=== PATIENT | female | born 1995 | race Caucasian/White ===

== ENCOUNTER 2018-04-07 11:20 | Day surgery (SDC) | payer BC ==
[2018-04-06 13:07] VITALS: BMI 27.3
[2018-04-07] MEDS ORDERED: BUPIVACAINE HCL/PF 0.5% (5MG/ML) 10 ML VIAL ONE (12:08)
--- NOTE | 2018-04-07 12:12 | HP ---
[facility] - Chief Complaint Chief Complaint: History of biliary pancreatitis, gallstones, elevated LFTs History Source: Patient Limitations to Obtaining History: No Limitations - Past Medical History Allergies/Adverse Reactions: Allergies Allergy/AdvReac Type Severity Reaction Status Date / Time peanut Allergy Severe Hives Verified 04/06/18 13:02 shellfish derived Allergy Severe Hives Verified 04/06/18 13:02 strawberry Allergy Severe Hives Verified 04/06/18 13:02 ...LMP: 03/17/18 - Current Medications Current Medications: Home Medications Medication Instructions Recorded Docusate Sodium [Colace -] 100 mg PO TID #90 capsule 04/07/18 Oxycodone HCl/Acetaminophen 1 - 2 tab PO Q6H #28 tab MDD 4 04/07/18 [Percocet 5-325 mg Tablet] Satellite Physical Exam - Physical Examination Vital Signs: Vital Signs Period Temp Pulse Resp BP Sys/Wesley Pulse Ox Last 24 Hr 99 F 90 18 129/90 99 General Appearance: Well Nourished Lung: Clear to auscultation Heart: Regular rate & rhythm Abdomen: Soft, No tenderness Neurological: Alert, Oriented Satellite Impression/Plan - Impression/Plan Impression: History of biliary pancreatitis, elevated LFTs, gallstones Operative Procedure: Robotic cholecystectomy Date to be Performed: 04/07/18
[2018-04-07] MEDS ORDERED: MIDAZOLAM HCL 2 MG/2 ML SINGLE DOSE VIAL ONE (13:32)
[2018-04-07] MEDS ORDERED: PROPOFOL 20 ML ONE (13:33)
[2018-04-07] MEDS ORDERED: ROCURONIUM BROMIDE 50 MG/5 ML VIAL ONE ×2 (13:34→14:21)
[2018-04-07] MEDS ORDERED: ceFAZolin SODIUM 1 GM VIAL IVPB ONE (13:41)
[2018-04-07] MEDS ORDERED: BUPIVACAINE HCL/PF 0.5% (5MG/ML) 10 ML VIAL IJ ONE (14:00)
[2018-04-07] MEDS ORDERED: LIDOCAINE HCL/PF 2% SDV 5ML VIAL ONE (14:52)
[2018-04-07] MEDS ORDERED: DEXAMETHASONE SOD PHOSPHATE 4 MG/1 ML VIAL ONE (14:52)
[2018-04-07] MEDS ORDERED: ceFAZolin SODIUM 1 GM VIAL ONE (14:52)
[2018-04-07] MEDS ORDERED: LIDOCAINE HCL 2% JELLY (5 ML/TUBE) ONE (14:52)
[2018-04-07] MEDS ORDERED: KETOROLAC TROMETHAMINE 30 MG/1 ML VIAL ONE (14:52)
[2018-04-07] MEDS ORDERED: GLYCOPYRROLATE 0.2 MG/1 ML VIAL ONE (15:00)
[2018-04-07] MEDS ORDERED: NEOSTIGMINE METHYLSULFATE 0.5 MG/ML - 10 ML MDV ONE (15:00)
--- NOTE | 2018-04-07 15:18 | OP ---
Operative Note - Note: Operative Date: 04/07/18 Pre-Operative Diagnosis: HIstory of biliary pancreatitis, elevated LFTs, jaundice, CBD stone Operation: Robotic cholecystectomy Post-Operative Diagnosis: Same as Pre-op Surgeon: Alfredo Frost Reference And Instruction Librarian: Yun Merritt Anesthesia: General Specimens Removed: Gallbladder Estimated Blood Loss (mls): 5 Operative Report Dictated: Yes
[2018-04-07] MEDS ORDERED: ONDANSETRON 4 MG/2 ML VIAL IVPUSH PRN (15:23)
[2018-04-07] MEDS ORDERED: LACTATED RINGERS SOLUTION 1,000 ML IV SCH (15:30)
--- NOTE | 2018-04-07 15:50 | SPEC ---
DATE OF OPERATION: 04/07/2018 SURGEON: Rosie Frost MD [facility] FELLOW: BROOKLYN Foster PREOPERATIVE DIAGNOSES: History of biliary pancreatitis, elevated liver function tests, and common bile duct stone. POSTOPERATIVE DIAGNOSES: History of biliary pancreatitis, elevated liver function tests, and common bile duct stone. PROCEDURE: Robotic cholecystectomy. SPECIMEN: Gallbladder. ESTIMATED BLOOD LOSS: 5 mL DRAINS: None. ANESTHESIA: GET. REASON FOR PROCEDURE: This is a 22-year-old female who had presented to an urgent care center for elevated bilirubin to a level of 5.3, as well as jaundice. She was worked up and seen both in the urgent care center as well as the ER where multiple tests were performed, demonstrating a common bile duct stones. She was followed up in those locations and noted to have a decreased bilirubin, trending towards normal, with resolution of her jaundice. In addition, she had elevated lipase levels as well. Because of her history of biliary pancreatitis, she was referred for cholecystectomy. Risks and benefits of a robotic, possible open cholecystectomy were explained. RISKS AND BENEFITS: The risks and benefits of a Robotic laparoscopic, possible open cholecystectomy were explained. These included bleeding, infection, hernia, TN, DVT, PE, injury to surrounding structures including the liver, colon, bowel, bile ducts, vessel injury, nerve injury, bile leak, and retained stones as some of the possible complications. The patient understood and signed informed consent. DESCRIPTION OF PROCEDURE: The patient was placed supine on the operating room table. The patient underwent general endotracheal intubation. The abdomen was prepped and draped in the usual sterile fashion. Time-out was performed. A periumbilical incision was made, and entrance into the abdominal cavity was attained using an 8-mm robotic trocar under direct visualization with the laparoscope. Pneumoperitoneum was established. Subsequently, an 8-mm robotic trocar was placed in the left lateral abdominal wall, and two 8-mm robotic trocars were placed in the right abdominal wall. The patient was placed in reverse Trendelenburg, [id number] position. The robot was brought over the field and docked. Dissection was performed at the console. The gallbladder was retracted cephalad and laterally. Any adherent omentum was carefully freed and dissected. The peritoneum was dissected and opened. The cystic duct followed by the cystic artery was carefully dissected. Firefly technology was used to confirm anatomy. At this point, the cystic duct followed by the cystic artery was clipped and transected. The gallbladder was removed off the liver bed using electrocautery. Hemostasis was achieved using electrocautery. The gallbladder was placed in an EndoCatch bag. Copious irrigation and suction were performed until clear. The gallbladder was removed from the abdominal cavity and sent off the field. All robotic instruments were removed. The robot was undocked and removed from the field. The fascia at the gallbladder extraction site was closed using a 0 Vicryl suture. All incision sites were irrigated and Marcaine was injected. Hemostasis of the incision sites was noted. All incision sites were closed using 4-0 Biosyn. Sterile dressings were applied. The patient tolerated the procedure well and was transferred to the recovery room in stable condition. ROSIE FROST M.D. [id number]
[2018-04-07] MEDS ORDERED: oxyCODONE HCL 5 MG TABLET ONE (17:48)
[2018-04-07 18:32] VITALS: BP 108/67; PULSE 68
[2018-04-07 18:34] VITALS: TEMP 98.3
--- NOTE | 2018-04-11 18:49 | PATH ---
Surgical Pathology Report Patient Name: VANESSA NEWMAN [facility]. Rec. #: [id number] /Age/Gender: 1995 (Age: 22) / F Account: [id number] Location: [facility] SURGICAL Taken: 04/07/2018 Received: 04/08/2018 Reported: 04/11/2018 Physicians: Alfredo Frost M.D. Specimen(s) Received GALLBLADDER Clinical History Cholelithiasis, biliary pancreatitis Final Diagnosis GALLBLADDER, CHOLECYSTECTOMY: CHRONIC CHOLECYSTITIS AND CHOLELITHIASIS. Electronically Signed Sybil Platt M.D. Gross Description Received in formalin, labeled "gallbladder," is a 6.7 x 2.7 x 2.5 cm. gallbladder with a 0.2 cm. in length portion of cystic duct attached. The outer surface is daigle crespo and varies from smooth to shaggy. The lumen contains green, tenacious bile as well as abundant yellow, irregular to fragmented choleliths ranging from 0.1-1.2 cm in greatest dimension. The mucosa is green and velvety. The wall of the gallbladder averages 0.1 cm. in thickness. Statement Request Clerk sections are submitted in one cassette. 04/08/201804/08/2018
== END 2018-04-07 18:20 | disposition home or self-care (01) ==
LOC: JASU-SURG 11:20
PROVIDERS: ATTEND Surgery
PROC: 8E0W4CZ Robotic Assisted Procedure of Trunk Region, Percutaneous Endoscopic Approach (ICD-10-PCS; 2018-04-07)
PROC: 0FT44ZZ Resection of Gallbladder, Percutaneous Endoscopic Approach (ICD-10-PCS; principal; 2018-04-07 13:00)
DX: K80.50 Calculus of bile duct without cholangitis or cholecystitis without obstruction (principal)
CPT/HCPCS: 47562; S2900; 84703; 88304-TC; 94760